=== PATIENT | male | born 1985 | race Caucasian/White ===

== ENCOUNTER 2024-01-15 22:45 | Emergency (ER) | payer SELFPAY ==
[2024-01-15] MEDS ORDERED: Sodium Chloride 0.9% 10 ML Syringe FLUSH PRN (22:55)
[2024-01-15 23:07] LABS: BASOPHILS ABSOLUTE AUTO 0.04 K/uL (0.00-0.20); BASOPHILS PERCENT AUTO 0.6 % (0.0-2.0); EOSINOPHILS ABSOLUTE AUTO 0.12 K/uL (0.00-0.50); EOSINOPHILS PERCENT AUTO 1.7 % (0.0-5.0); HEMOGLOBIN 14.7 g/dL (13.1-16.8); LYMPHOCYTES ABSOLUTE AUTO 3.48 K/uL (0.50-3.50); LYMPHOCYTES PERCENT AUTO 48.2 % (10.0-50.0); MEAN CORPUSCULAR HEMOGLOBIN 31.9 pg (28.2-33.3); MEAN CORPUSCULAR HGB CONC 34.2 g/dL (31.7-36.0); MEAN CORPUSCULAR VOLUME 93.3 fL (84.0-98.0); MONOCYTES ABSOLUTE AUTO 0.55 K/uL (0.00-1.00); MONOCYTES PERCENT AUTO 7.6 % (2.0-14.0); NEUTROPHILS ABSOLUTE AUTO 3.03 K/uL (1.40-7.00); NEUTROPHILS PERCENT AUTO 41.9 % (45.0-80.0); PLATELET COUNT,PLT 265 K/uL (150-350); RED BLOOD CELL COUNT 4.61 M/uL (4.33-5.41); WHITE BLOOD CELL COUNT,WBC 7.2 K/uL (4.0-10.2)
[2024-01-15] MEDS ORDERED: Naloxone 0.4 MG/ML SDV ONE (23:16)
[2024-01-15 23:32] LABS: ALANINE AMINOTRANSFERASE,ALT 43 U/L (12-78); ALBUMIN 3.8 g/dL (3.4-5.0); ALKALINE PHOSPHATASE 59 IU/L (46-116); ASPARTATE AMNIOTRANSFERASE,AST 29 U/L (15-37); BILIRUBIN TOTAL 0.3 mg/dL (0.2-1.0); BLOOD UREA NITROGEN,BUN 13 mg/dL (7-18); CALCIUM 7.9 mg/dL (8.5-10.1); CHLORIDE,CL 105 mmol/L (98-107); CREATININE 1.04 mg/dL (0.51-1.17); ETHANOL BLOOD MEDICAL 0.356 g/dL (0.000-0.080); GLUCOSE RANDOM 113 mg/dL (70-99); PROTEIN TOTAL,TP 6.8 g/dL (6.4-8.2); SODIUM,NA 142 mmol/L (136-145)
[2024-01-15 23:33] LABS: ESTIMATED GFR 94 mL/min (>=60)
[2024-01-15] MEDS: Lactated Ringers 1,000 ML IV ONE (23:57)
[2024-01-16] MEDS: Lactated Ringers 1,000 ML IV ONE (00:12)
== END 2024-01-16 00:40 | disposition home or self-care (01) ==
LOC: LL.ED 22:45
DX: F10.920 Alcohol use, unspecified with intoxication, uncomplicated (principal)
CPT/HCPCS: 36415; 80053; 80307; 85025; 93005; 96360; 96361; 99285; J7120; 93010; 99284